=== PATIENT | female | born 1990 | race Caucasian/White ===

== ENCOUNTER 2019-10-05 13:10 | Emergency (ER) | payer OTHER, MEDICAID, SELFPAY ==
[2019-10-05 13:14] VITALS: BP 150/101; PULSE 90; RESP 16; TEMP 36.6; O2SAT 100; BMI 29.2
--- NOTE | 2019-10-05 13:40 | DI.RAD.S_ITS ---
PROCEDURE: XR CHEST 2V INDICATIONS: Chest pain TECHNIQUE: 2 views of the chest were acquired. COMPARISON: None. FINDINGS: Surgical changes and devices: None. Lungs and pleura: Lungs are clear. No pleural effusions or pneumothorax. Mediastinum: Mediastinal contours are normal. Heart size is normal. Bones and chest wall: No suspicious bony abnormalities. Soft tissues appear unremarkable. IMPRESSION: Normal chest plain films. Dictated by: Stuart Baker M.D. on 10/05/2019 at 14:28 Approved by: Stuart Baker M.D. on 10/05/2019 at 14:28
== END 2019-10-05 15:40 | disposition left against medical advice (07) ==
PROVIDERS: Emergency Provider Emergency Medicine; PCP Physician Assistant Medical
DX: R07.9 Chest pain, unspecified (principal)
CPT/HCPCS: 71046; 93005; 99281

== ENCOUNTER 2021-10-05 16:02 | Emergency (ER) | payer OTHER, MEDICAID, SELFPAY ==
[2021-10-05 16:07] VITALS: BP 117/81; PULSE 88; RESP 18; TEMP 37; BMI 28.0
[2021-10-05] MEDS: ONDANSETRON 4 MG ODT SL (16:37)
--- NOTE | 2021-10-05 19:11 | ED_ITS ---
HPI - Nausea/Vomiting/Diarrhea General Chief complaint: Nausea/Vomiting/Diarrhea Stated complaint: COVID+/Throwing Up Time Seen by Provider: 10/05/21 19:04 Source: patient Mode of arrival: Ambulatory History of Present Illness HPI Narrative: Patient is a 31-year-old female who presents with nausea and vomiting. She tested positive for COVID on September 26. She is not vaccinated. She says the symptoms actually started to improve however 2 days ago she started feeling nauseous again and unable to keep anything down. She was seen and evaluated at [facility] earlier today they did get blood work she was noted to have a mild elevation of liver enzymes with AST 94 ALT 70 a and a normal bilirubin of 0.8. Unfortunately patient states that her IV infiltrated is and she received about 500 cc subcutaneously (no mention of this in chart). She was discharged shortly after that. She was given a prescription for Zofran. She came here for 2nd evaluation. At this time his that she has not vomited since this morning she has been tolerating small sips. She overall appears well. Related Data Home Medications Medication Instructions Recorded Confirmed epinephrine 0.3 mg/0.3 mL 0.3 mg IM PRN PRN 10/05/19 injection, auto-injector Previous Rx's Medication Instructions Recorded ondansetron 4 mg disintegrating 4 mg PO Q8H PRN #10 tab 10/05/21 tablet Allergies Allergy/AdvReac Type Severity Reaction Status Date / Time ciprofloxacin [From CIPRO] Allergy Intermediate Unverified 10/05/19 13:17 Sulfa (Sulfonamide Allergy Intermediate Unverified 10/05/19 13:17 Antibiotics) [SULFA (SULFONAMIDE ANTIBIOTICS)] sulfamethoxazole Allergy Intermediate Difficulty Verified 10/05/21 16:07 [From Bactrim] Breathing trimethoprim [From Bactrim] Allergy Intermediate Difficulty Verified 10/05/21 16:07 Breathing escitalopram [From Lexapro] Allergy Mild Rash Verified 10/05/21 16:07 SULFA Allergy Mild Uncoded 10/05/19 13:17 Review of Systems Review of Systems Narrative: GENERAL: Denies chills, fatigue, malaise, fever, sweats, travel HEENT: Denies sinus pain, ear pain, sore throat, difficulty swallowing, neck pain RESPIRATORY: Denies dyspnea, cough, wheezing, hemoptysis, sputum. CARDIOVASCULAR: Denies chest pain, palpitations, orthopnea, edema GASTROINTESTINAL: See HPI : Denies dysuria, frequency, incontinence, hematuria, urinary retention, flank pain. MUSCULOSKELETAL: Denies weakness, joint pain, or bony pain SKIN: No rash, no erythema, no pruritus NEUROLOGIC: Denies weakness, dizziness, headache, numbness, change in speech, confusion PSYCHIATRIC: No concerning psychosocial issues. 12 point review of systems is negative except for those stated above and HPI Patient History Social History Smoking Status: Never smoker Smoking Status: Never smoker Substance Use Type: does not use Exam Initial Vital Signs Initial Vital Signs: Vital Signs Temperature 98.6 F 10/05/21 16:07 Pulse Rate 88 10/05/21 16:07 Respiratory Rate 18 10/05/21 16:07 Blood Pressure 117/81 10/05/21 16:07 GENERAL: Alert 31-year-old female overall appears well in no acute distress. HEENT: Head atraumatic,EOMI, pupils reactive, face symmetric, moist mucous membranes CARDIOVASCULAR: Regular rate and rhythm without murmurs, rubs or gallops. RESPIRATORY: Breath sounds equal bilaterally, no wheezes rales or rhonchi. ABDOMEN: Soft, minimal right upper quadrant pain minimal epigastric pain no guarding no rebound no distension normal bowel sounds EXTREMITIES: Normal range of motion, no clubbing or edema. Neurovascularly intact NEUROLOGICAL: Alert and oriented x4.Normal gait and speech. SKIN: Warm, dry, no laceration, no petechiae, no rashes or lesions. Course Orders Ordered: ED Orders 10/05/21 19:16 US abdomen limited Stat Discontinued Medications Ondansetron HCl (Ondansetron 4 Mg Odt) 4 mg SL NOW ONE Stop: 10/05/21 16:15 Last Admin: 10/05/21 16:37 Dose: 4 mg Documented by: ARMANDO Ondansetron HCl (Ondansetron 4 Mg Odt Prepack) 1 bottle MISC SEEINSTR ONE Stop: 10/05/21 21:39 Last Admin: 10/05/21 21:42 Dose: 1 bottle Documented by: DAPHNE Vital Signs Vital signs: Vital Signs - 8 hr 10/05/21 16:07 10/05/21 19:25 10/05/21 21:46 Temperature 98.6 F 98.1 F Pulse Rate 88 89 85 Respiratory Rate 18 16 16 Blood Pressure 117/81 154/97 H 113/81 Pulse Oximetry 100 99 [facility] - Nausea/Vomiting/Diarrhea Imaging Data US - abdomen: Radiologist's Impression: PROCEDURE:? US ABDOMEN LIMITED ? INDICATIONS:? PAIN AND MILDLY ELEVATED LIVER FUNCTION TESTS ? TECHNIQUE:? Real-time scanning was performed of the abdominal and retroperitoneal organs, with image documentation.? ? COMPARISON:? [facility], CT, KIDNEY/ URETER/BLADDER, 06/06/2017, 20:37. ? FINDINGS:? ? Liver:? Liver is normal in size and homogeneous in echotexture.? ? Gallbladder:? Prominent sludge is present within the gallbladder.? Wall thickness is within normal limits measuring 2.4 cm.? ? Biliary ducts:? Intrahepatic bile ducts are non-dilated.? Extrahepatic bile duct caliber measures 2.8 mm.? Normal is 6-7 mm or less in diameter, or 10 mm or less post-cholecystectomy.? ? IMPRESSION:? Gallbladder sludge without wall thickening. ? Dictated by: Aranza Swain M.D. on 10/05/2021 at 21:13 ? ? [facility] Narrative Medical decision making narrative: Patient had blood work an IV fluid done earlier today in fact she was released around 230 in the afternoon. At this time there is no need to repeat her blood work she overall appears well. She is tolerating fluid here in the ED she has not vomited in a while. Ultrasound does show she have good has gallbladder sludge but no stones. She is afebrile at this time no need for further workup. Discussed warning signs with her and when to return to the ED. May eventually need to have gallbladder removed but not at this time. Discharge Plan Departure Patient Disposition: Home Clinical Impression: Gallbladder sludge Instructions: Gallstones Activity Restrictions/Additional Instructions: *You have been diagnosed with gallbladder sludge *What to do: At this time her gallbladder is inflamed but no sign of infection or gallstones. Please monitor closely. It may be due to recent infection. Continue to increase fluid as tolerated. Avoid fatty foods and can exacerbate pain and nausea *Continue to take medications as directed Zofran 4 mg every 8 hours if needed for nausea or vomiting--> SENT TO [facility] *Follow up with your primary care provider in 2-3 days or call [phone] *Return to ER if you should have fever, increasing right upper abdominal pain, persistent vomiting or any new, worsening or concerning symptoms Prescriptions: New ondansetron 4 mg tablet,disintegrating 4 mg PO Q8H PRN (Reason: nausea and vomiting) Qty: 10 0RF No Action epinephrine 0.3 mg/0.3 mL auto-injector 0.3 mg IM PRN PRN (Reason: Allergic Reaction) 0RF Referrals: Lexii Nunez PA-C [Primary Care Provider] -
--- NOTE | 2021-10-05 19:16 | DI.US.S_ITS ---
PROCEDURE: US ABDOMEN LIMITED INDICATIONS: PAIN AND MILDLY ELEVATED LIVER FUNCTION TESTS TECHNIQUE: Real-time scanning was performed of the abdominal and retroperitoneal organs, with image documentation. COMPARISON: [facility], CT, KIDNEY/ URETER/BLADDER, 06/06/2017, 20:37. FINDINGS: Liver: Liver is normal in size and homogeneous in echotexture. Gallbladder: Prominent sludge is present within the gallbladder. Wall thickness is within normal limits measuring 2.4 cm. Biliary ducts: Intrahepatic bile ducts are non-dilated. Extrahepatic bile duct caliber measures 2.8 mm. Normal is 6-7 mm or less in diameter, or 10 mm or less post-cholecystectomy. IMPRESSION: Gallbladder sludge without wall thickening. Dictated by: Aranza Swain M.D. on 10/05/2021 at 21:13 Approved by: Aranza Swain M.D. on 10/05/2021 at 21:14
[2021-10-05 19:25] VITALS: BP 154/97; PULSE 89; RESP 16; TEMP 36.7; O2SAT 100
--- NOTE | 2021-10-05 19:30 | PC.NURSE ---
Pt described IV infiltration earlier at [facility], right upper arm noted to have some swelling, pt reports improvement since occurrence. Assisted pt to elevate arm on pillow.
--- NOTE | 2021-10-05 21:19 | PC.NURSE ---
Pt reports keeping water down, nausea returning, coached pt on small sips and time in between.
[2021-10-05] MEDS: ONDANSETRON 4 MG ODT PREPACK 1 BOTTLE MISC (21:42)
[2021-10-05 21:46] VITALS: BP 113/81; PULSE 85; RESP 16; O2SAT 99
== END 2021-10-05 21:47 | disposition home or self-care (01) ==
PROVIDERS: Emergency Provider Emergency Medicine; PCP Physician Assistant Medical
DX: K82.8 Other specified diseases of gallbladder (principal); R11.2 Nausea with vomiting, unspecified
CPT/HCPCS: 76705; 99283

== ENCOUNTER 2021-10-15 17:31 | Observation (INO) | payer OTHER, MEDICAID, SELFPAY ==
[2021-10-15] VITALS (7 sets, daily range): BP systolic 113–154; BP diastolic 66–100; PULSE 75–97; RESP 18; TEMP 36.7; O2SAT 83–100; BMI 28.0
[2021-10-15 18:07] LABS: Add Manual Diff / Slide Review NO; Basophils Absolute Auto 100 /uL (0-100); Eosinophils Absolute Auto 100 /uL (0-450); Eosinophils Percent Auto 1.6 % (2-4); Hematocrit 40.1 % (36-46); Hemoglobin 13.7 g/dL (12.0-16.0); Lymphocytes Absolute Auto 1400 /uL (1100-4500); Lymphocytes Percent Auto 20.6 % (25-40); Mean Corpuscular HGB Conc 34.1 % (30-36); Mean Corpuscular Hemoglobin 28.6 PG (26-34); Mean Corpuscular Volume 83.9 fL (80-100); Monocytes Absolute Auto 400 /uL (0-900); Monocytes Percent Auto 5.6 % (3-14); Neutrophils Absolute Auto 5000 /uL (1500-7000); Neutrophils Percent Auto 71.2 % (50-75); Platelet Count 198 X10^3/uL (150-400); Red Blood Cell Count 4.78 X10^6/uL (4.0-5.2); Red Cell Distribution Width 14.1 % (11.6-14.8)
[2021-10-15 18:29] LABS: Alanine Aminotransferase 566 IU/L (<35); Albumin Globulin Ratio 1.3 (1.0-2.8); Alkaline Phosphatase 140 U/L (38-126); Aspartate Aminotransferase 707 IU/L (14-36); BUN Creatinine Ratio 15.9 (6-22); Bilirubin Total 1.5 mg/dL (0.2-1.3); Blood Urea Nitrogen 17 mg/dL (7-17); Calcium 9.7 mg/dL (8.4-10.2); Carbon Dioxide 28 mmol/L (22-32); Chloride 101 mmol/L (98-107); Estimated Glomerular Filt Rate > 60.0 mL/min (>60); Globulin 3.8 g/dL (1.7-4.1); Glucose 90 mg/dL (70-100); HEMOLYSIS < 15 (0-50); Lipase 177 U/L (23-300); Sodium 138 mmol/L (137-145); Total Protein 8.8 g/dL (6.3-8.2)
--- NOTE | 2021-10-15 22:12 | DI.US.S_ITS ---
PROCEDURE: US ABDOMEN LIMITED INDICATIONS: ABD PAIN ELEVATED LFTS TECHNIQUE: Real-time scanning was performed of the abdominal and retroperitoneal organs, with image documentation. COMPARISON: [facility], , US ABDOMEN LIMITED, 10/05/2021, 20:04. FINDINGS: Liver: Liver is normal in size and homogeneous in echotexture. Gallbladder: There is gallbladder sludge or gravel stones. No gallbladder wall thickening, pericholecystic fluid or sonographic Joyce's sign. Biliary ducts: Intrahepatic bile ducts are non-dilated. Extrahepatic bile duct caliber measures 2.8 mm. Pancreas: Obscured by overlying bowel gas. Miscellaneous: No free abdominal fluid. IMPRESSION: Gallbladder sludge or gravel stones. No ultrasound findings to suggest acute cholecystitis. No biliary dilation. Dictated by: Kimani Major M.D. on 10/15/2021 at 23:42 Approved by: Kimani Major M.D. on 10/15/2021 at 23:45
[2021-10-15] MEDS: SODIUM CHLORIDE 0.9% 1,000 ML 1000 ML IV (22:16)
[2021-10-15 22:39] LABS: COVID19 -Nasal RAPID Negative (Negative)
[2021-10-16] VITALS (13 sets, daily range): BP systolic 105–134; BP diastolic 63–84; PULSE 63–95; RESP 18–20; TEMP 36.1–37.2; O2SAT 98–100; BMI 26.2
--- NOTE | 2021-10-16 00:07 | ED_ITS ---
HPI - Abdominal Pain General Chief Complaint: Abdominal Pain Stated Complaint: THOWING UP RIGHT SIDE PAIN Time Seen by Provider: 10/15/21 22:12 Source: patient Mode of arrival: Ambulatory Limitations: no limitations History of Present Illness HPI narrative: This is a 31-year-old female who comes to the emergency department for complaint of right upper quadrant pain that has been persistent since she was last seen about a week ago. She has had nausea and vomiting. She denies any fevers but has had some chills. Patient states she has had constipation but that is chronic for her. She denies any urinary symptoms. She states she has history of inappropriate tachycardia she takes metoprolol follows with cardiology. Denies other medical issues. She has several antibiotic allergies. No tobacco, denies illicit, or alcohol. Related Data Home Medications Medication Instructions Recorded Confirmed epinephrine 0.3 mg/0.3 mL 0.3 mg IM PRN PRN 10/05/19 10/16/21 injection, auto-injector loratadine 10 mg tablet (Claritin) 10 mg PO DAILY 10/16/21 10/16/21 metoprolol succinate 25 mg 25 mg PO DAILY 10/16/21 10/16/21 tablet,extended release 24 hr Previous Rx's Medication Instructions Recorded ondansetron 4 mg disintegrating 4 mg PO Q8H PRN #10 tab 10/05/21 tablet Allergies Allergy/AdvReac Type Severity Reaction Status Date / Time ciprofloxacin [From CIPRO] Allergy Intermediate Unverified 10/05/19 13:17 Sulfa (Sulfonamide Allergy Intermediate Unverified 10/05/19 13:17 Antibiotics) [SULFA (SULFONAMIDE ANTIBIOTICS)] sulfamethoxazole Allergy Intermediate Difficulty Verified 10/05/21 16:07 [From Bactrim] Breathing trimethoprim [From Bactrim] Allergy Intermediate Difficulty Verified 10/05/21 16:07 Breathing escitalopram [From Lexapro] Allergy Mild Rash Verified 10/05/21 16:07 SULFA Allergy Mild Uncoded 10/05/19 13:17 Review of Systems Review of Systems ROS Unobtainable: All systems reviewed & are unremarkable except as noted in HPI and below Patient History Medical History Closed head injury Concussion syndrome Dizziness Gallbladder sludge Lower back pain Urinary tract infection Social History household members: family Smoking Status: Never smoker alcohol intake: never Smoking Status: Never smoker Substance Use Type: does not use Exam Narrative Exam Narrative: GENERAL: Alert and oriented x three, female in mild distress. HEENT: Head normocephalic, atraumatic, EOMI, pupils reactive, face symmetric, moist mucous membranes NECK: Supple, full range of motion CARDIOVASCULAR: Regular rate and rhythm without murmurs, rubs or gallops. RESPIRATORY: Breath sounds equal bilaterally, no wheezes rales or rhonchi. ABDOMEN: Soft, mild to moderate right upper quadrant tenderness. Nondistended. Normoactive bowel sounds all 4 quadrants. No guarding or rebound, rigidity, no mass : No CVA tenderness EXTREMITIES: Normal range of motion, no clubbing or edema. Neurovascularly intact NEUROLOGICAL: Cranial nerves II through XII grossly intact. Moving all extremities SKIN: Warm, dry, no petechiae, no rashes or lesions. Initial Vital Signs Initial Vital Signs: Vital Signs Temperature 98.1 F 10/15/21 17:41 Pulse Rate 97 H 10/15/21 17:41 Respiratory Rate 18 10/15/21 17:41 Blood Pressure 154/90 H 10/15/21 17:41 Pulse Oximetry 99 10/15/21 17:41 Course Orders Ordered: ED Orders 10/15/21 22:12 US abdomen limited Stat 10/15/21 22:17 COVID19 -Nasal swab/Pre-Proc Stat 10/16/21 00:11 Test Serum,Qual Stat 10/16/21 00:23 Urine Microscopic Stat 10/16/21 00:39 Consult to General Surgery Stat 10/16/21 00:45 Hepatitis Acute Panel Stat Hydrocodone Bitart/Acetaminophen (Hydrocodone/Acet 5/325 Tablet) 1 tab PO Q4HR PRN PRN Reason: Pain, Moderate (4-6) Hydrocodone Bitart/Acetaminophen (Hydrocodone/Acet 5/325 Tablet) 2 tab PO Q4HR PRN PRN Reason: Pain, Severe (7-10) Enoxaparin Sodium (Enoxaparin 40 Mg/0.4 Ml Syringe) 40 mg SUBCUT DAILY SUGAR Sodium Chloride (Normal Saline 0.9%) 1,000 mls @ 100 mls/hr IV CONT SUGAR Last Admin: 10/16/21 03:04 Dose: 100 mls/hr Documented by: SAM Metoprolol Succinate (Metoprolol Er 25 Mg Tablet) 25 mg PO DAILY [facility] Naloxone HCl (Naloxone 0.4 Mg/Ml Vial) 0.2 mg IV Q2MIN PRN PRN Reason: Opiate Reversal Ondansetron HCl (Ondansetron 4 Mg/2 Ml Inj) 4 mg IV Q6HR PRN PRN Reason: Nausea And Vomiting Oxycodone HCl (Oxycodone Ir 5 Mg Tablet) 5 mg PO Q4HR PRN PRN Reason: Pain, Moderate (4-6) Discontinued Medications Acetaminophen (Acetaminophen 325 Mg Tablet) 650 mg PO Q6HR PRN PRN Reason: Fever/Mild Pain (1-3) Sodium Chloride (Normal Saline 0.9%) 1,000 mls @ 1,000 mls/hr IV BOLUS ONE Stop: 10/15/21 23:11 Last Infusion: 10/16/21 00:09 Dose: 0 mls/hr Documented by: Admin: 10/15/21 22:16 Dose: 1,000 mls/hr Documented by: PEPPER Lactated Ringer's (Lactated Ringers) 1,000 mls @ 100 mls/hr IV CONT SUGAR Last Admin: 10/16/21 02:42 Dose: 100 mls/hr Documented by: SAM Ketorolac Tromethamine (Ketorolac 30 Mg/Ml Vial) 30 mg IV NOW ONE Stop: 10/16/21 00:22 Last Admin: 10/16/21 00:51 Dose: 30 mg Documented by: PEPPER Ondansetron HCl (Ondansetron 4 Mg/2 Ml Inj) 4 mg IV NOW ONE Stop: 10/16/21 00:22 Last Admin: 10/16/21 00:51 Dose: 4 mg Documented by: PEPPER Consultations Consultation #1: Dr. Bassett, recommends HIDA scan. Discusses obtaining a viral hepatitis panel. She asked for admission to medicine as she has suspect this is likely nonsurgical. Consultation #2: MANDY Vidal, hospitalist. Patient has hepatitis, she has had nausea and vomiting and right upper quadrant tenderness. She has persistent gallbladder sludge but no other acute changes on her ultrasound. An but has trending upwards LFTs compared to priors documented in last visit from Dr. Moreno. Discussed General surgery's recommendations including HIDA scan, viral hepatitis panel. Patient does have a history of inappropriate tachycardia which she takes metoprolol daily but denies other medical issues. Vital Signs Vital signs: Vital Signs - 8 hr 10/15/21 23:00 10/15/21 23:30 10/16/21 00:00 Pulse Rate 91 H 85 85 Blood Pressure 126/66 113/66 113/63 Pulse Oximetry 98 100 100 10/16/21 00:30 Pulse Rate 95 H Blood Pressure Pulse Oximetry 99 MDM - Abdominal Pain Lab Data Result diagrams: 10/16/21 06:04 10/15/21 17:50 Labs: Lab Results 10/15/21 10/15/21 10/15/21 Range/Units 17:50 17:50 17:50 WBC 7.0 (4.5-11.0) X10^3/uL RBC 4.78 (4.0-5.2) X10^6/uL Hgb 13.7 (12.0-16.0) g/dL Hct 40.1 (36-46) % MCV 83.9 (80-100) fL MCH 28.6 (26-34) PG MCHC 34.1 (30-36) % RDW 14.1 (11.6-14.8) % Plt Count 198 (150-400) X10^3/uL Neut % (Auto) 71.2 (50-75) % Lymph % (Auto) 20.6 L (25-40) % [place] % (Auto) 5.6 (3-14) % Eos % (Auto) 1.6 L (2-4) % Baso % (Auto) 1.0 (0-2) % Neut # (Auto) 5000 (9556-6705) /uL Lymph # (Auto) 1400 (4331-8726) /uL [place] # (Auto) 400 (0-900) /uL Eos # (Auto) 100 (0-450) /uL Baso # (Auto) 100 (0-100) /uL Sodium 138 (137-145) mmol/L Potassium 4.0 (3.4-5.1) mmol/L Chloride 101 (98-107) mmol/L Carbon Dioxide 28 (22-32) mmol/L BUN 17 (7-17) mg/dL Creatinine 1.07 H (0.52-1.04) mg/dL Estimated GFR > 60.0 (>60) mL/min BUN/Creatinine Ratio 15.9 (6-22) Glucose 90 (70-100) mg/dL Calcium 9.7 (8.4-10.2) mg/dL Total Bilirubin 1.5 H (0.2-1.3) mg/dL AST 707 H (14-36) IU/L ALT 566 H (<35) IU/L Alkaline Phosphatase 140 H (38-126) U/L Total Protein 8.8 H (6.3-8.2) g/dL Albumin 5.0 (3.5-5.0) g/dL Globulin 3.8 (1.7-4.1) g/dL Albumin/Globulin Ratio 1.3 (1.0-2.8) Lipase 177 (23-300) U/L Serum , Qual Negative (Negative) Urine RBC (0-5/HPF) Urine WBC (0-5/HPF) Ur Squamous Epith Cells (0-5/HPF) Urine Bacteria (None) Ur Culture Indicated? SARS-CoV-2 (PCR) (Negative) 10/15/21 10/16/21 Range/Units 22:17 00:23 WBC (4.5-11.0) X10^3/uL RBC (4.0-5.2) X10^6/uL Hgb (12.0-16.0) g/dL Hct (36-46) % MCV (80-100) fL MCH (26-34) PG MCHC (30-36) % RDW (11.6-14.8) % Plt Count (150-400) X10^3/uL Neut % (Auto) (50-75) % Lymph % (Auto) (25-40) % [place] % (Auto) (3-14) % Eos % (Auto) (2-4) % Baso % (Auto) (0-2) % Neut # (Auto) (7305-1070) /uL Lymph # (Auto) (3916-9120) /uL [place] # (Auto) (0-900) /uL Eos # (Auto) (0-450) /uL Baso # (Auto) (0-100) /uL Sodium (137-145) mmol/L Potassium (3.4-5.1) mmol/L Chloride (98-107) mmol/L Carbon Dioxide (22-32) mmol/L BUN (7-17) mg/dL Creatinine (0.52-1.04) mg/dL Estimated GFR (>60) mL/min BUN/Creatinine Ratio (6-22) Glucose (70-100) mg/dL Calcium (8.4-10.2) mg/dL Total Bilirubin (0.2-1.3) mg/dL AST (14-36) IU/L ALT (<35) IU/L Alkaline Phosphatase (38-126) U/L Total Protein (6.3-8.2) g/dL Albumin (3.5-5.0) g/dL Globulin (1.7-4.1) g/dL Albumin/Globulin Ratio (1.0-2.8) Lipase (23-300) U/L Serum , Qual (Negative) Urine RBC None seen (0-5/HPF) Urine WBC None seen (0-5/HPF) Ur Squamous Epith Cells 1-5 /hpf (0-5/HPF) Urine Bacteria Few (2-10) H (None) Ur Culture Indicated? Cult not indicated SARS-CoV-2 (PCR) Negative (Negative) Point of care testing: Point of Care Testing Test Results Negative Urine Dip Bedside Urine Glucose Negative Bedside Urine Bilirubin - Negative Bedside Urine Ketone +++ 80 Urine Specific [place] 1.030 Bedside Urine Occult Blood - Negative Bedside Urine pH 6.0 Bedside Urine Protein +/- 15 Bedside Urine Urobilinogen - Negative Bedside Urine Nitrite - Negative Bedside Urine Leukocytes - Negative Esterase Imaging Data US - abdomen: Radiologist's Impression: [address] [address] Ultrasound Report Signed Patient: Mariia Childress MR#: [id number] : 1990 Acct:[id number] Age/Sex: 31 / F Date of Service: 10/15/21 Loc: ED Accession Number: [id number] ?? Procedure: US abdomen limited Ordering Provider: Kyung Campos D.O. PROCEDURE:? US ABDOMEN LIMITED ? INDICATIONS:? ABD PAIN ELEVATED LFTS ? TECHNIQUE:? Real-time scanning was performed of the abdominal and retroperitoneal organs, with image documentation.? ? COMPARISON:? [facility], [place], US ABDOMEN LIMITED, 10/05/2021, 20:04. ? FINDINGS:? ? Liver:? Liver is normal in size and homogeneous in echotexture.? ? Gallbladder:? There is gallbladder sludge or gravel stones. No gallbladder wall thickening, pericholecystic fluid or sonographic Joyce's sign. Biliary ducts:? Intrahepatic bile ducts are non-dilated.? Extrahepatic bile duct caliber measures 2.8 mm. Pancreas:? Obscured by overlying bowel gas.? Miscellaneous:? No free abdominal fluid.? ? IMPRESSION:? Gallbladder sludge or gravel stones.? No ultrasound findings to suggest acute cholecystitis.? No biliary dilation. ? ? Dictated by: Kimani Major M.D. on 10/15/2021 at 23:42 ? ? Approved by: Kimani Major M.D. on 10/15/2021 at 23:45?? [facility] Narrative Medical decision making narrative: This is a 31-year-old female with increasing LFTs with nausea and vomiting and right upper quadrant pain he has biliary sludge but no wall thickening or pericholecystic fluid. She is tender on exam but has negative sonographic Joyce sign. She has been afebrile. She has had nausea and vomiting and has ketones in her urine. Case was discussed with General surgery who recommends HIDA scan, viral hepatitis panel and admission to Medicine. Discussed with nurse practitioner Young who accepts. Plan for consultation with General surger hernandez. Discharge Plan Departure Patient Disposition: Admitted As Inpatient Clinical Impression: Hepatitis Admit Date/Time: 10/16/21 00:42 Admit Provider: Tabitha Vidal
[2021-10-16 00:25] LABS: Pregnancy Test Serum,Qual Negative (Negative)
[2021-10-16 00:44] LABS: Bacteria Urine Few (2-10); Culture Indicated Urine Cult Not Indicated; RBC Urine None Seen (0-5/HPF); Squamous Epithelial Cell Urine 1-5 /HPF (0-5/HPF); WBC Urine None Seen (0-5/HPF)
[2021-10-16] MEDS: ONDANSETRON 4 MG/2 ML INJ IV ×2 (00:51→14:08)
[2021-10-16] MEDS: KETOROLAC 30 MG/ML VIAL IV (00:51)
--- NOTE | 2021-10-16 02:41 | DI.NM.S_ITS ---
PROCEDURE: NM HIDA WITH CCK PHARMACEUTICAL: 5.4 mCi Tc-99m mebrofenin IV; 1.2 mcg CCK IV. INDICATIONS: Gall stones, sludge TECHNIQUE: Following intravenous administration of Tc-99m mebrofenin, sequential anterior abdominal images were obtained. To evaluate the contractile response of the gallbladder in response to Cholecystokinin (CCK), sincalide (0.02 ?g/kg) was administered by slow intravenous infusion approximately 60 minutes after the administration of the radiopharmaceutical. Sequential imaging was continued for 30 minutes after the start of CCK infusion. Gallbladder ejection fraction was calculated. COMPARISON: None. FINDINGS: Biliary scan: There is normal tracer uptake and excretion by the liver. There is normal visualization of the intrahepatic ducts, common bile duct, and gallbladder. There is normal tracer transit into the duodenum. CCK stimulation: There is diminished contractile response of the gallbladder to CCK infusion. The calculated gallbladder ejection fraction is 20% ; normal values are above 35%. It has been shown that any patient abdominal pain after CCK administration is related to the rate of CCK injection, rather than to any underlying gallbladder disease (Clinical Nuclear Medicine 2012; 37: 63-70. Journal of Nuclear Medicine 2014; 55: 1-9). IMPRESSION: 1. Findings suggestive of chronic cholecystitis. Dictated by: Jeffrey Nunez M.D. on 10/16/2021 at 13:10 Approved by: Jeffrey Nunez M.D. on 10/16/2021 at 13:10
[2021-10-16] MEDS: LACTATED RINGERS 1,000 ML 100 ML IV (02:42)
--- NOTE | 2021-10-16 03:02 | P.HP_ITS ---
History of Present Illness History of Present Illness Date Patient Seen: 10/16/21 Time Patient Seen: 02:45 Chief complaint: THOWING UP RIGHT SIDE PAIN Narrative: Mariia Childress is a 31-year-old female who presented to the emergency department with right upper quadrant pain, nausea and vomiting. She noticed initially that the pain started under the ribs. She has not been eating for the past 4-5 days therefore not urinating much and has chronic constipation. She has been able to keep down water and Gatorade. She states that she had chills but no fever. She currently takes metoprolol, though I am not sure aside from an elevated heart rate as to why she is taking it. In the emergency department ordered an ultrasound of her abdomen and found gallstones and gallbladder sludge with no signs of acute cholecystitis. ED consulted with General surgery and they requested that we admit the patient and order a HIDA scan for her in the morning. Her vital signs are stable and normal, CBC is unremarkable, she does have a mildly elevated creatinine of 1.07 which might be caused from dehydration, her T bili is elevated at 1.5 AST 707 ALT 566 alk-phos 140 with protein of 8.8. She had a mild amount of urine bacteria and a culture was not indicated. COVID-19 PCR is negative, acute hepatitis panel is pending. Patient History Medical History Closed head injury Concussion syndrome Dizziness Gallbladder sludge Lower back pain Urinary tract infection Family & Social History Social History: household members family Prior Living Arrangements House Safety & Behavioral: Feels Safe in Current Yes Environment Been Physically Hurt or No Threatened By a Person Suicidal Ideation Description None Suicide Plan Description No Plan Tobacco & Substance use: Smoking Status Never smoker alcohol intake never Substance Use Type does not use Meds Home Medications and Allergies Home Medications Medication Instructions Recorded Confirmed Type epinephrine 0.3 mg/0.3 mL 0.3 mg IM PRN PRN 10/05/19 10/16/21 History injection, auto-injector ondansetron 4 mg disintegrating 4 mg PO Q8H PRN #10 tab 10/05/21 10/16/21 Rx tablet loratadine 10 mg tablet (Claritin) 10 mg PO DAILY 10/16/21 10/16/21 History metoprolol succinate 25 mg 25 mg PO DAILY 10/16/21 10/16/21 History tablet,extended release 24 hr Allergies Allergy/AdvReac Type Severity Reaction Status Date / Time ciprofloxacin [From CIPRO] Allergy Intermediate Unverified 10/05/19 13:17 Sulfa (Sulfonamide Allergy Intermediate Unverified 10/05/19 13:17 Antibiotics) [SULFA (SULFONAMIDE ANTIBIOTICS)] sulfamethoxazole Allergy Intermediate Difficulty Verified 10/05/21 16:07 [From Bactrim] Breathing trimethoprim [From Bactrim] Allergy Intermediate Difficulty Verified 10/05/21 16:07 Breathing escitalopram [From Lexapro] Allergy Mild Rash Verified 10/05/21 16:07 SULFA Allergy Mild Uncoded 10/05/19 13:17 Review of Systems Review of Systems ROS: Yes All systems reviewed with the patient and are negative except as otherwise documented Exam Vital Signs (past 8 hours): - 10/15/21 21:29 10/15/21 21:30 10/15/21 22:00 Temperature Pulse Rate 75 80 82 Respiratory Rate Blood Pressure 141/100 H 118/75 Pulse Oximetry 83 L 99 98 10/15/21 22:30 10/15/21 23:00 10/15/21 23:30 Temperature Pulse Rate 82 91 H 85 Respiratory Rate Blood Pressure 120/69 126/66 113/66 Pulse Oximetry 100 98 100 10/16/21 00:00 10/16/21 00:30 10/16/21 01:00 Temperature Pulse Rate 85 95 H 87 Respiratory Rate Blood Pressure 113/63 Pulse Oximetry 100 99 99 10/16/21 01:10 Temperature 98.0 F Pulse Rate 88 Respiratory Rate 20 Blood Pressure 134/84 Pulse Oximetry 99 Oxygen Delivery Method Room Air Narrative Exam Narrative: Gen: Alert, oriented, well-developed 31 y.o. female, NAD HEENT: normocephalic, atraumatic, conjunctiva clear, sclera non-icteric, oral mucosa pink and moist Neck: supple, full ROM, no JVD, trachea is midline Resp: Lungs CTA, non-labored breathing CV: RRR, no murmur or rubs Abd: soft, diffuse epigastric tenderness, normoactive BTs Skin: no lesions or rashes, dry and intact Neuro: Alert and oriented X 4 w/no focal deficits. Speech clear and coherent. Extremities: moves all 4 extremities, is ambulatory, negative Jeremi?s sign Psyche: normal mood and affect. Objective Labs Result Diagrams: 10/15/21 17:50 10/15/21 17:50 Labs: Laboratory Results - last 24 hr 10/15/21 10/15/21 10/15/21 17:50 17:50 17:50 WBC 7.0 RBC 4.78 Hgb 13.7 Hct 40.1 MCV 83.9 MCH 28.6 MCHC 34.1 RDW 14.1 Plt Count 198 Neut % (Auto) 71.2 Lymph % (Auto) 20.6 L [place] % (Auto) 5.6 Eos % (Auto) 1.6 L Baso % (Auto) 1.0 Neut # (Auto) 5000 Lymph # (Auto) 1400 [place] # (Auto) 400 Eos # (Auto) 100 Baso # (Auto) 100 Sodium 138 Potassium 4.0 Chloride 101 Carbon Dioxide 28 BUN 17 Creatinine 1.07 H Estimated GFR > 60.0 BUN/Creatinine Ratio 15.9 Glucose 90 Calcium 9.7 Total Bilirubin 1.5 H AST 707 H ALT 566 H Alkaline Phosphatase 140 H Total Protein 8.8 H Albumin 5.0 Globulin 3.8 Albumin/Globulin Ratio 1.3 Lipase 177 Serum , Qual Negative Urine RBC Urine WBC Ur Squamous Epith Cells Urine Bacteria Ur Culture Indicated? SARS-CoV-2 (PCR) 10/15/21 10/16/21 22:17 00:23 WBC RBC Hgb Hct MCV MCH MCHC RDW Plt Count Neut % (Auto) Lymph % (Auto) [place] % (Auto) Eos % (Auto) Baso % (Auto) Neut # (Auto) Lymph # (Auto) [place] # (Auto) Eos # (Auto) Baso # (Auto) Sodium Potassium Chloride Carbon Dioxide BUN Creatinine Estimated GFR BUN/Creatinine Ratio Glucose Calcium Total Bilirubin AST ALT Alkaline Phosphatase Total Protein Albumin Globulin Albumin/Globulin Ratio Lipase Serum , Qual Urine RBC None seen Urine WBC None seen Ur Squamous Epith Cells 1-5 /hpf Urine Bacteria Few (2-10) H Ur Culture Indicated? Cult not indicated SARS-CoV-2 (PCR) Negative Assessment & Plan Assessment & Plan narrative: Mariia Childress is placed into observation for further evaluation and management of abdominal pain suspected of originating in her gall bladder. 1. Abdominal pain, acute, present on admission * Patient is continued on a clear diet * HIDA scan is scheduled for the morning * Oxycodone 5 mg q.4 hours as needed for pain * Hold acetaminophen 2. Essential hypertension * Continue home dose of metoprolol succinate 25 mg p.o. daily VTE Prophylaxis: Wells risk score 0 Enoxaparin 40 mg subQ once daily Bilateral SCDs Patient is placed into observation as her stay is not expected to exceed 2 midnights. FEN: IV fluids: NS at 100 ml/hour, diet: clears, labs: CBC, C/BMP, liver enzymes, [facility] Dr. Bassett, care and involvement in the patient?s care is appreciated. Dispo: likely home Code status: Full code as discussed with the patient. [X] I have utilized all available immediate resources to obtain, update, or review of the patient's current medications COVID-19 COVID-19 status: Negative Result date/Date tested (Pos, Neg/Pending): 10/16/21 Scores Wells' Criteria for PE Clinical signs and symptoms of DVT: No PE is #1 Dx or equally likely: No Heart rate > 100: No Immobilization at least 3 days or surg in previous 4 weeks: No History of PE or DVT: No Hemoptysis: No Malignancy w/Treatment within 6 months or palliative: No Wells' PE Score total: 0 Quality VTE Deep Vein Thrombosis/Pulmonary Embolism Present on Admission: No MIPS - Admit I confirm the patient?s Advance Care Plan is present, Code status is documented, Surrogate decision maker is in patient?s record [If Yes, STOP here]: Yes MIPS - DC The patient has current or prior documentation of left ventricular ejection fraction (LVEF) less than 40%, or moderate or severely depressed left ventricular systolic function.: No
[2021-10-16] MEDS: SODIUM CHLORIDE 0.9% 1,000 ML 100 ML IV ×2 (03:04→15:51)
[2021-10-16 06:30] LABS: Add Manual Diff / Slide Review NO; Basophils Absolute Auto 100 /uL (0-100); Eosinophils Absolute Auto 200 /uL (0-450); Eosinophils Percent Auto 4.3 % (2-4); Hematocrit 35.8 % (36-46); Hemoglobin 12.1 g/dL (12.0-16.0); Lymphocytes Absolute Auto 2200 /uL (1100-4500); Lymphocytes Percent Auto 41.3 % (25-40); Mean Corpuscular HGB Conc 33.8 % (30-36); Mean Corpuscular Hemoglobin 28.6 PG (26-34); Mean Corpuscular Volume 84.4 fL (80-100); Monocytes Absolute Auto 400 /uL (0-900); Monocytes Percent Auto 8.1 % (3-14); Neutrophils Absolute Auto 2400 /uL (1500-7000); Neutrophils Percent Auto 45.3 % (50-75); Platelet Count 158 X10^3/uL (150-400); Red Blood Cell Count 4.24 X10^6/uL (4.0-5.2); Red Cell Distribution Width 14.3 % (11.6-14.8); White Blood Cell Count 5.3 X10^3/uL (4.5-11.0)
[2021-10-16 06:38] LABS: BUN Creatinine Ratio 18.5 (6-22); Blood Urea Nitrogen 15 mg/dL (7-17); Calcium 8.5 mg/dL (8.4-10.2); Carbon Dioxide 25 mmol/L (22-32); Chloride 107 mmol/L (98-107); Estimated Glomerular Filt Rate > 60.0 mL/min (>60); Glucose 62 mg/dL (70-100); HEMOLYSIS < 15 (0-50); Potassium 3.8 mmol/L (3.4-5.1); Sodium 137 mmol/L (137-145)
[2021-10-16] MEDS: ENOXAPARIN 40 MG/0.4 ML SYRINGE SUBCUT (10:07)
[2021-10-16] MEDS: METOPROLOL ER 25 MG TABLET PO (10:07)
--- NOTE | 2021-10-16 11:08 | PC.NURSE ---
Addendum entered by Abdiel Beard R.N. 10/16/21 18:38: Pt taking Reg diet, continues independent in room. Original Note: Pt alert and oriented offers no overt complaint on waking. Pt aware of Hida scan this morning. Discussed Hida scan with D.I. Plan to inject patient at 10:00 and have Pt down for scan about 11:00 Pt complained of pain. Discussed with Pt that we need to hold pain med as it would affect the Hida scan. Pt stated understanding.
--- NOTE | 2021-10-16 15:36 | PM.CN ---
History of Present Illness Consult details Date Patient Seen: 10/16/21 Time Patient Seen: 13:15 Chief complaint: THOWING UP RIGHT SIDE PAIN Reason for consult: RUQ pain Requesting provider: Naya Moreno Narrative: H/o greater than a week of RUQ pain. Seen at [facility]. Persistent RUQ pain and nausea. Decreased appepite, no cough. No previous episodes. US show no GB wall thickening, no Joyce's sign. possible sludge. LFT's elevated HIDA: no acute cholecystitis, chronic cholecystitis, EF 20% Meds Home Medications and Allergies Home Medications Medication Instructions Recorded Confirmed Type epinephrine 0.3 mg/0.3 mL 0.3 mg IM PRN PRN 10/05/19 10/16/21 History injection, auto-injector ondansetron 4 mg disintegrating 4 mg PO Q8H PRN #10 tab 10/05/21 10/16/21 Rx tablet loratadine 10 mg tablet (Claritin) 10 mg PO DAILY 10/16/21 10/16/21 History metoprolol succinate 25 mg 25 mg PO DAILY 10/16/21 10/16/21 History tablet,extended release 24 hr Allergies Allergy/AdvReac Type Severity Reaction Status Date / Time ciprofloxacin [From CIPRO] Allergy Intermediate Verified 10/16/21 09:52 Sulfa (Sulfonamide Allergy Intermediate Verified 10/16/21 09:52 Antibiotics) [SULFA (SULFONAMIDE ANTIBIOTICS)] sulfamethoxazole Allergy Intermediate Difficulty Verified 10/05/21 16:07 [From Bactrim] Breathing trimethoprim [From Bactrim] Allergy Intermediate Difficulty Verified 10/05/21 16:07 Breathing escitalopram [From Lexapro] Allergy Mild Rash Verified 10/05/21 16:07 Exam Vital Signs (past 8 hours): - 10/16/21 08:41 10/16/21 10:07 10/16/21 14:00 Temperature 97.4 F L 97.5 F L Pulse Rate 81 87 76 Respiratory Rate 18 18 Blood Pressure 105/68 113/75 122/80 Pulse Oximetry 100 100 10/16/21 14:05 Temperature Pulse Rate 63 Respiratory Rate Blood Pressure 117/75 Pulse Oximetry Oxygen Delivery Method Room Air Oxygen Flow Rate 0 Const General: cooperative, healthy appearing and comfortable Orientation: alert and oriented x3 HENMT Head: normocephalic and atraumatic Eyes General: appearance normal, both eyes and all related structures Neck Neck: trachea midline Chest Chest: normal inspection of the chest Resp Effort & Inspection: normal respiratory effort and able to speak in complete sentences Cardio Rate: tachycardic Rhythm: regular rhythm GI Palpation: soft Other: RUQ tenderness to palpation Skin General: no rashes or lesions noted Hair: normal Neuro Cognition: normal cognition Speech: speech normal Psych Appearance: grossly normal and well kempt Objective Labs Result Diagrams: 10/16/21 06:04 10/16/21 06:04 Labs: Laboratory Results - last 24 hr 10/15/21 10/15/21 10/15/21 17:50 17:50 17:50 WBC 7.0 RBC 4.78 Hgb 13.7 Hct 40.1 MCV 83.9 MCH 28.6 MCHC 34.1 RDW 14.1 Plt Count 198 Neut % (Auto) 71.2 Lymph % (Auto) 20.6 L [place] % (Auto) 5.6 Eos % (Auto) 1.6 L Baso % (Auto) 1.0 Neut # (Auto) 5000 Lymph # (Auto) 1400 [place] # (Auto) 400 Eos # (Auto) 100 Baso # (Auto) 100 Sodium 138 Potassium 4.0 Chloride 101 Carbon Dioxide 28 BUN 17 Creatinine 1.07 H Estimated GFR > 60.0 BUN/Creatinine Ratio 15.9 Glucose 90 Calcium 9.7 Total Bilirubin 1.5 H AST 707 H ALT 566 H Alkaline Phosphatase 140 H Total Protein 8.8 H Albumin 5.0 Globulin 3.8 Albumin/Globulin Ratio 1.3 Lipase 177 Serum , Qual Negative Urine RBC Urine WBC Ur Squamous Epith Cells Urine Bacteria Ur Culture Indicated? SARS-CoV-2 (PCR) 10/15/21 10/16/21 10/16/21 22:17 00:23 06:04 WBC 5.3 RBC 4.24 Hgb 12.1 Hct 35.8 L MCV 84.4 MCH 28.6 MCHC 33.8 RDW 14.3 Plt Count 158 Neut % (Auto) 45.3 L D Lymph % (Auto) 41.3 H D [place] % (Auto) 8.1 Eos % (Auto) 4.3 H Baso % (Auto) 1.0 Neut # (Auto) 2400 Lymph # (Auto) 2200 [place] # (Auto) 400 Eos # (Auto) 200 Baso # (Auto) 100 Sodium Potassium Chloride Carbon Dioxide BUN Creatinine Estimated GFR BUN/Creatinine Ratio Glucose Calcium Total Bilirubin AST ALT Alkaline Phosphatase Total Protein Albumin Globulin Albumin/Globulin Ratio Lipase Serum , Qual Urine RBC None seen Urine WBC None seen Ur Squamous Epith Cells 1-5 /hpf Urine Bacteria Few (2-10) H Ur Culture Indicated? Cult not indicated SARS-CoV-2 (PCR) Negative 10/16/21 06:04 WBC RBC Hgb Hct MCV MCH MCHC RDW Plt Count Neut % (Auto) Lymph % (Auto) [place] % (Auto) Eos % (Auto) Baso % (Auto) Neut # (Auto) Lymph # (Auto) [place] # (Auto) Eos # (Auto) Baso # (Auto) Sodium 137 Potassium 3.8 Chloride 107 Carbon Dioxide 25 BUN 15 Creatinine 0.81 Estimated GFR > 60.0 BUN/Creatinine Ratio 18.5 Glucose 62 L Calcium 8.5 Total Bilirubin AST ALT Alkaline Phosphatase Total Protein Albumin Globulin Albumin/Globulin Ratio Lipase Serum , Qual Urine RBC Urine WBC Ur Squamous Epith Cells Urine Bacteria Ur Culture Indicated? SARS-CoV-2 (PCR) [facility] Medical History Closed head injury Concussion syndrome Dizziness Gallbladder sludge Lower back pain Urinary tract infection Social History household members: family Tobacco & Substance Use Smoking Status: Never smoker alcohol intake: never Assessment & Plan Assessment & Plan narrative: RUQ pain with elevated LFT's, not acute cholecystitis. Possible viral hepatitis. No cholecystectomy recommended COVID-19 COVID-19 status: Negative Time Spent With Patient Time with patient: 30 to 49 minutes with 50% spent counseling/coordinating care Critical Care time: I spent a total of [] minutes of critical care time on this patient's care today; this time is exclusive of procedural time.
[2021-10-16] MEDS: HYDROCODONE/ACET 5/325 TABLET 1 TAB PO ×2 (15:52→21:50)
--- NOTE | 2021-10-16 16:02 | CM.DANOTE ---
DISCHARGE ASSESSMENT: Patient is 31yo female who is admitted for continued observation of acute abdominal pain with elevated LFTs, possible viral hepatitis and pending HIDA scan AM of 10/16 as well as essential hypertension; being followed and treated by Dr. Vidal. HIDA scan results indicate no acute cholecystitis, chronic cholecystitis, EF 20% Patient has medical history of closed head injury, concussion syndrome, dizziness, gallbladder sludge, lower back pain, and UTI. Patient has no history of prior admissions, no history of HH, SNF. Patient is fully independent at baseline. Patient resides at home with her parents and siblings; her parents are able to be her transportation home at time of discharge. Patient has Medicaid as well as [employer] as insurance coverage. Patient is anticipated to discharge home. No identified discharge planning needs at this time. No barriers to discharge identified at this time. Kamar NORMAN Discharge Planning/Care Management CM Discharge Assessment Start: 10/16/21 15:58 Freq: Status: Active Protocol: Document 10/16/21 15:59 FREDO (Rec: 10/16/21 16:02 FREDO [id number]) Discharge Planning Assessment Assigned Neon Sign Erector Kamar NORMAN DPOA/Assigned Designee Name n/a Advance Directives? No Advance Directives on File No History Provided By Patient,Medical Record Has Patient been admitted in last 30 No days? Prior Living Arrangements House Household Members family Comment parents and sisters Type of transporation used prior to Drives own vehicle admit Independent with ADL's Yes Is patient alert and oriented? Yes Caregiver for Another No Barriers to Discharge No Discharge Plan Home Transportation Arrangement patient's parent(s) can pick her up upon discharge Referrals Initiated None needed Whiteboard Updated in Patient Room with Yes name and ext. # of Neon Sign Erector Review Status In Process Next Review Type Continued Stay Review
[2021-10-16 16:09] LABS: Monotest Negative (Negative)
[2021-10-17] VITALS: BP 105/70; PULSE 60; RESP 18; TEMP 36.7; O2SAT 98
[2021-10-17] MEDS: SODIUM CHLORIDE 0.9% 1,000 ML 100 ML IV (01:54)
[2021-10-17 03:08] LABS: HBsAg Screen Negative (Negative); Hepatitis A Antibody IgM Negative (Negative); Hepatitis B Core Antibody IgM Negative (Negative); Hepatitis C Antibody <0.1 s/co ratio (0.0-0.9)
[2021-10-17 06:00] VITALS: BP 109/56; PULSE 64; RESP 18; TEMP 36.7; O2SAT 100
[2021-10-17 07:00] VITALS: O2SAT 99
[2021-10-17 07:23] LABS: Add Manual Diff / Slide Review NO; Basophils Absolute Auto 0 /uL (0-100); Basophils Percent Auto 0.7 % (0-2); Eosinophils Absolute Auto 300 /uL (0-450); Eosinophils Percent Auto 6.6 % (2-4); Hematocrit 33.3 % (36-46); Hemoglobin 11.2 g/dL (12.0-16.0); Lymphocytes Absolute Auto 1800 /uL (1100-4500); Lymphocytes Percent Auto 45.4 % (25-40); Mean Corpuscular HGB Conc 33.6 % (30-36); Mean Corpuscular Hemoglobin 28.6 PG (26-34); Mean Corpuscular Volume 85.1 fL (80-100); Monocytes Absolute Auto 300 /uL (0-900); Monocytes Percent Auto 8.6 % (3-14); Neutrophils Absolute Auto 1500 /uL (1500-7000); Neutrophils Percent Auto 38.7 % (50-75); Platelet Count 137 X10^3/uL (150-400); Red Blood Cell Count 3.91 X10^6/uL (4.0-5.2); Red Cell Distribution Width 13.9 % (11.6-14.8); White Blood Cell Count 3.9 X10^3/uL (4.5-11.0)
[2021-10-17 07:32] LABS: Alanine Aminotransferase 211 IU/L (<35); Albumin 3.5 g/dL (3.5-5.0); Albumin Globulin Ratio 1.3 (1.0-2.8); Alkaline Phosphatase 72 U/L (38-126); Aspartate Aminotransferase 109 IU/L (14-36); BUN Creatinine Ratio 10.4 (6-22); Bilirubin Total 0.7 mg/dL (0.2-1.3); Blood Urea Nitrogen 8 mg/dL (7-17); Calcium 8.2 mg/dL (8.4-10.2); Carbon Dioxide 24 mmol/L (22-32); Chloride 110 mmol/L (98-107); Estimated Glomerular Filt Rate > 60.0 mL/min (>60); Globulin 2.6 g/dL (1.7-4.1); Glucose 76 mg/dL (70-100); HEMOLYSIS < 15 (0-50); Potassium 4.2 mmol/L (3.4-5.1); Sodium 138 mmol/L (137-145); Total Protein 6.1 g/dL (6.3-8.2)
[2021-10-17 07:55] VITALS: O2SAT 100
[2021-10-17 08:13] VITALS: BP 113/73; PULSE 70
[2021-10-17] MEDS: METOPROLOL ER 25 MG TABLET PO (08:13)
[2021-10-17] MEDS: ENOXAPARIN 40 MG/0.4 ML SYRINGE SUBCUT (08:15)
[2021-10-17] MEDS: ONDANSETRON 4 MG/2 ML INJ IV (08:22)
[2021-10-17] MEDS: HYDROCODONE/ACET 5/325 TABLET 1 TAB PO (10:07)
--- NOTE | 2021-10-17 13:05 | P.PN_ITS ---
Subjective Subjective Interval history: Patient reports improved abd pain and n/v. However, she's understandably concerned about biliary colic recurrence. We discussed that general surgery does not recommend cholecystectomy. We discussed dietary strategies to keep biliary colic at bay, i.e. eating slowly, thoroughly, and avoiding fatty foods. I also advised her to follow-up with her PCP for general surgery or GI outpatient referral. She understands and is agreeable. Exam Vital Signs (past 8 hours): - 10/17/21 06:00 10/17/21 07:00 10/17/21 07:55 Temperature 98.1 F Pulse Rate 64 Respiratory Rate 18 Blood Pressure 109/56 L Pulse Oximetry 100 99 100 10/17/21 08:13 Temperature Pulse Rate 70 Respiratory Rate Blood Pressure 113/73 Pulse Oximetry Oxygen Delivery Method Room Air Oxygen Flow Rate 0 Const Other: Sitting up in chair upon my entering the room, in no apparent, acute distress Eyes Other: No scleral icterus appreciated. Resp Other: Lungs clear to auscultation bilaterally. Cardio Other: RRR, S1 and S2 heart sounds normal, with no extra heart sounds or murmurs appreciated. No peripheral edema noted. GI Other: Soft, non-distended, slightly tender to palpation over RUQ. Bowel sounds present. Skin Other: No grossly abnormal skin lesions noted. Extrem Other: Palpable and equally steady radial pulses. Objective Labs Result Diagrams: 10/17/21 07:03 10/17/21 07:03 Labs: Laboratory Results - last 24 hr 10/16/21 10/16/21 10/17/21 00:45 06:04 07:03 WBC RBC Hgb Hct MCV MCH MCHC RDW Plt Count Neut % (Auto) Lymph % (Auto) [place] % (Auto) Eos % (Auto) Baso % (Auto) Neut # (Auto) Lymph # (Auto) [place] # (Auto) Eos # (Auto) Baso # (Auto) Sodium 138 Potassium 4.2 Chloride 110 H Carbon Dioxide 24 BUN 8 Creatinine 0.77 Estimated GFR > 60.0 BUN/Creatinine Ratio 10.4 Glucose 76 Calcium 8.2 L Total Bilirubin 0.7 AST 109 H ALT 211 H Alkaline Phosphatase 72 D Total Protein 6.1 L Albumin 3.5 Globulin 2.6 Albumin/Globulin Ratio 1.3 Hepatitis A IgM Ab Negative Hep Bs Antigen Negative Hep B Core IgM Ab Negative Hepatitis C Antibody <0.1 Hep C Ab Signal/Cutoff Comment Monoscreen Negative 10/17/21 07:03 WBC 3.9 L RBC 3.91 L Hgb 11.2 L Hct 33.3 L MCV 85.1 MCH 28.6 MCHC 33.6 RDW 13.9 Plt Count 137 L Neut % (Auto) 38.7 L Lymph % (Auto) 45.4 H [place] % (Auto) 8.6 Eos % (Auto) 6.6 H Baso % (Auto) 0.7 Neut # (Auto) 1500 Lymph # (Auto) 1800 [place] # (Auto) 300 Eos # (Auto) 300 Baso # (Auto) 0 Sodium Potassium Chloride Carbon Dioxide BUN Creatinine Estimated GFR BUN/Creatinine Ratio Glucose Calcium Total Bilirubin AST ALT Alkaline Phosphatase Total Protein Albumin Globulin Albumin/Globulin Ratio Hepatitis A IgM Ab Hep Bs Antigen Hep B Core IgM Ab Hepatitis C Antibody Hep C Ab Signal/Cutoff [facility] Medical History Closed head injury Concussion syndrome Dizziness Gallbladder sludge Lower back pain Urinary tract infection Social History household members: family Smoking Status: Never smoker alcohol intake: never Assessment & Plan Assessment & Plan narrative: Mariia Childress is placed into observation for further evaluation and management of abdominal pain suspected to be biliary colic. 1. Biliary colic, acute, present on admission * US gallbladder showed sludge/gravel stone, and no cholecystitis * HIDA scan reveals evidence of likely chronic cholecystitis * Appreciate general surgery recommendations that patient not under cholecystectomy this admission * We discussed dietary strategies to try to prevent biliary colic, and advised patient to follow-up with PCP outpatient for likely GI or general surgery clinic referral 2. Essential hypertension * Continue home dose of metoprolol succinate 25 mg p.o. daily Code status: Full code I have utilized all available immediate resources to obtain, update, or review of the patient's current medications Time Spent With Patient Critical Care time: I spent a total of [] minutes of critical care time on this patient's care today; this time is exclusive of procedural time. Quality VTE Deep Vein Thrombosis/Pulmonary Embolism Present on Admission: No MIPS - Admit I confirm the patient?s Advance Care Plan is present, Code status is documented, Surrogate decision maker is in patient?s record [If Yes, STOP here]: Yes
--- NOTE | 2021-10-17 13:13 | P.DS_ITS ---
History of Present Illness History of Present Illness Chief complaint: THOWING UP RIGHT SIDE PAIN Narrative: Mariia Childress is a 31-year-old female who presented to the emergency department with right upper quadrant pain, nausea and vomiting.? She noticed initially that the pain started under the ribs.? She has not been eating for the past 4-5 days therefore not urinating much and has chronic constipation.? She has been able to keep down water and Gatorade.? She states that she had chills but no fever.? She currently takes metoprolol, though I am not sure aside from an elevated heart rate as to why she is taking it. In the emergency department ordered an ultrasound of her abdomen and found gallstones and gallbladder sludge with no signs of acute cholecystitis.? ED consulted with General surgery and they requested that we admit the patient and order a HIDA scan for her in the morning.? Her vital signs are stable and normal, CBC is unremarkable, she does have a mildly elevated creatinine of 1.07 which might be caused from dehydration, her T bili is elevated at 1.5 AST 707 ALT 566 alk-phos 140 with protein of 8.8.? She had a mild amount of urine bacteria and a culture was not indicated.? COVID-19 PCR is negative, acute hepatitis panel is pending. Discharge Providers Provider Date of admission: 10/16/21 00:42 Discharge Date: 10/17/21 Primary care physician: Lexii Nunez PA-C Consults: 10/16/21 00:39 Consult to General Surgery Stat Comment: Consulting Provider: Delmy Bassett Reason for consultation: gallbladder dysfunction Has provider been notified: Yes 10/16/21 02:40 Consult to Physician Routine Comment: Consulting Provider: Delmy Bassett Reason for consultation: Gall stones, sludge Has provider been notified: Yes Discharge provider: Ruel Cordova MD Summary Hospital Course Discharge Diagnosis: Mariia Childress is placed into observation for further evaluation and management of abdominal pain suspected to be biliary colic. 1. Biliary colic, acute, present on admission ? US gallbladder showed sludge/gravel stone, and no cholecystitis ? HIDA scan reveals evidence of likely chronic cholecystitis ? Appreciate general surgery recommendations that patient not under cholecystectomy this admission ? We discussed dietary strategies to try to prevent biliary colic, and advised patient to follow-up with PCP outpatient for likely GI or general surgery clinic referral 2. Essential hypertension ? Continue home dose of metoprolol succinate 25 mg p.o. daily Code status: Full code I have utilized all available immediate resources to obtain, update, or review of the patient's current medications Exam Vital Signs (past 8 hours): - 10/17/21 06:00 10/17/21 07:00 10/17/21 07:55 Temperature 98.1 F Pulse Rate 64 Respiratory Rate 18 Blood Pressure 109/56 L Pulse Oximetry 100 99 100 10/17/21 08:13 Temperature Pulse Rate 70 Respiratory Rate Blood Pressure 113/73 Pulse Oximetry Oxygen Delivery Method Room Air Oxygen Flow Rate 0 Objective Labs Result Diagrams: 10/17/21 07:03 10/17/21 07:03 Labs: Laboratory Results - last 24 hr 10/16/21 10/16/21 10/17/21 00:45 06:04 07:03 WBC RBC Hgb Hct MCV MCH MCHC RDW Plt Count Neut % (Auto) Lymph % (Auto) [place] % (Auto) Eos % (Auto) Baso % (Auto) Neut # (Auto) Lymph # (Auto) [place] # (Auto) Eos # (Auto) Baso # (Auto) Sodium 138 Potassium 4.2 Chloride 110 H Carbon Dioxide 24 BUN 8 Creatinine 0.77 Estimated GFR > 60.0 BUN/Creatinine Ratio 10.4 Glucose 76 Calcium 8.2 L Total Bilirubin 0.7 AST 109 H ALT 211 H Alkaline Phosphatase 72 D Total Protein 6.1 L Albumin 3.5 Globulin 2.6 Albumin/Globulin Ratio 1.3 Hepatitis A IgM Ab Negative Hep Bs Antigen Negative Hep B Core IgM Ab Negative Hepatitis C Antibody <0.1 Hep C Ab Signal/Cutoff Comment Monoscreen Negative 10/17/21 07:03 WBC 3.9 L RBC 3.91 L Hgb 11.2 L Hct 33.3 L MCV 85.1 MCH 28.6 MCHC 33.6 RDW 13.9 Plt Count 137 L Neut % (Auto) 38.7 L Lymph % (Auto) 45.4 H [place] % (Auto) 8.6 Eos % (Auto) 6.6 H Baso % (Auto) 0.7 Neut # (Auto) 1500 Lymph # (Auto) 1800 [place] # (Auto) 300 Eos # (Auto) 300 Baso # (Auto) 0 Sodium Potassium Chloride Carbon Dioxide BUN Creatinine Estimated GFR BUN/Creatinine Ratio Glucose Calcium Total Bilirubin AST ALT Alkaline Phosphatase Total Protein Albumin Globulin Albumin/Globulin Ratio Hepatitis A IgM Ab Hep Bs Antigen Hep B Core IgM Ab Hepatitis C Antibody Hep C Ab Signal/Cutoff Monoscreen PFSH Medical History Closed head injury Concussion syndrome Dizziness Gallbladder sludge Lower back pain Urinary tract infection Social History household members: family Smoking Status: Never smoker alcohol intake: never Discharge Assessment & Plan Assessment and Plan Assessment: Mariia Childress is placed into observation for further evaluation and management of abdominal pain suspected to be biliary colic. 1. Biliary colic, acute, present on admission ? US gallbladder showed sludge/gravel stone, and no cholecystitis ? HIDA scan reveals evidence of likely chronic cholecystitis ? Appreciate general surgery recommendations that patient not under cholecystectomy this admission ? We discussed dietary strategies to try to prevent biliary colic, and advised patient to follow-up with PCP outpatient for likely GI or general surgery clinic referral 2. Essential hypertension ? Continue home dose of metoprolol succinate 25 mg p.o. daily Code status: Full code I have utilized all available immediate resources to obtain, update, or review of the patient's current medications Discharge Plan Discharge Plan Patient Disposition: Home Discharge orders & Medications Prescriptions: Continued loratadine [Claritin] 10 mg Tablet 10 mg PO DAILY 0RF metoprolol succinate 25 mg tablet extended release 24 hr 25 mg PO DAILY 0RF Label Comments: TAKE 1 TABLET BY MOUTH ONCE DAILY epinephrine 0.3 mg/0.3 mL auto-injector 0.3 mg IM PRN PRN (Reason: Allergic Reaction) 0RF Rx Instructions: Patient states she hasn't used for about 4 years (used for fish allergies) Changed ondansetron 4 mg tablet,disintegrating 8 mg PO Q8H PRN (Reason: nausea and vomiting) 10 Days Qty: 60 0RF Follow up/Referrals: Lexii Nunez PA-C [Primary Care Provider] - Discharge Data Primary Care Provider: Lexii Nunez Attending Provider: Tabitha Vidal VTE Deep Vein Thrombosis/Pulmonary Embolism Present on Admission: No
--- NOTE | 2021-10-17 14:05 | PC.NURSE ---
Pt discharged at 1400, escorted off floor in wheelchair, accompanied by hospital staff. IV removed, discharge teaching completed. Importance of follow up appointments reviewed, pt states she has appointment with primary care physician this week and will ask for referral to GI doc at that time. Patient left the floor with all belongings in possession.
[2021-10-18 09:19] LABS: HIV 1 & 2 Ab/Ag 4th Gen Combo NEGATIVE (NEGATIVE)
== END 2021-10-17 14:07 | disposition home or self-care (01) ==
LOC: ED 10-16 00:41 → AC 10-16 07:45
PROVIDERS: Emergency Medicine; Student in an Organized Health Care Education/Training Program; Admitting Provider Nurse Practitioner Family; Emergency Provider Emergency Medicine; PCP Physician Assistant Medical; Referring Provider Emergency Medicine; Visit Provider Nurse Practitioner Family
DX: K80.50 Calculus of bile duct without cholangitis or cholecystitis without obstruction (principal); I10 Essential (primary) hypertension; Z20.822 Contact with and (suspected) exposure to COVID-19
CPT/HCPCS: 36415; 76705; 78227; 80048; 80053; 80074; 81003; 81015; 81025; 83690; 84703; 85025; 86318; 87389; 87635; 94760; 96361; 96372; 96374; 96375; 96376; 99225; 99284; A9537; C9803; G0378; J1650; J1885; J2405; J2805

== ENCOUNTER → 2021-11-07 09:17 | Outpatient (CLI) | payer OTHER, MEDICAID, SELFPAY ==
[2021-10-16 00:51] VITALS: BMI 26.2
[2021-11-07 11:23] LABS: COVID19 -Nasal RAPID Negative (Negative)
== END ==
PROVIDERS: PCP Physician Assistant Medical; Visit Provider Family Medicine Sleep Medicine
DX: Z20.822 Contact with and (suspected) exposure to COVID-19 (principal)
CPT/HCPCS: 87635; C9803

== ENCOUNTER 2021-11-08 13:20 | Day surgery (SDC) | payer OTHER, MEDICAID, SELFPAY ==
[2021-10-16 00:51] VITALS: BMI 26.2
[2021-11-05 14:36] VITALS: BMI 28.2
[2021-11-08 13:33] VITALS: BP 126/86; PULSE 71; RESP 16; TEMP 36.3; O2SAT 97; BMI 26.3
[2021-11-08] MEDS: LACTATED RINGERS 1,000 ML 42 ML IV (13:55)
--- NOTE | 2021-11-08 15:19 | PM.PREOP ---
Pre-operative Note Interval Note History & Physical reviewed/Exam performed by Physician: Yes Changes to H&P: No
--- NOTE | 2021-11-08 15:19 | PM.HP.1 ---
History of Present Illness History of Present Illness Chief complaint: Chronic tonsillitis Narrative: 31-year-old female last seen in clinic 09/18/2021 with history of recurrent tonsil stones and chronic tonsillitis, incompletely managed with medical therapy, presents for tonsillectomy and possible adenoidectomy. No interval health changes, no recent cough, cold, or fever. Patient History Medical History Chronic tonsillitis Closed head injury Concussion syndrome Dizziness Gallbladder sludge Lower back pain Tachycardia Urinary tract infection Family & Social History Social History: household members family Tobacco & Substance use: Smoking Status Never smoker alcohol intake never Substance Use Type does not use Meds Home Medications and Allergies Home Medications Medication Instructions Recorded Confirmed Type epinephrine 0.3 mg/0.3 mL 0.3 mg IM PRN PRN 10/05/19 11/05/21 History injection, auto-injector loratadine 10 mg tablet (Claritin) 10 mg PO DAILY 10/16/21 11/08/21 History metoprolol succinate 25 mg 25 mg PO DAILY 10/16/21 11/08/21 History tablet,extended release 24 hr ondansetron 4 mg disintegrating 8 mg PO Q8H PRN 10 Days #60 tab 10/17/21 11/05/21 Rx tablet Allergies Allergy/AdvReac Type Severity Reaction Status Date / Time ciprofloxacin [From CIPRO] Allergy Intermediate Verified 10/16/21 09:52 Sulfa (Sulfonamide Allergy Intermediate Verified 10/16/21 09:52 Antibiotics) [SULFA (SULFONAMIDE ANTIBIOTICS)] sulfamethoxazole Allergy Intermediate Difficulty Verified 10/05/21 16:07 [From Bactrim] Breathing trimethoprim [From Bactrim] Allergy Intermediate Difficulty Verified 10/05/21 16:07 Breathing escitalopram [From Lexapro] Allergy Mild Rash Verified 10/05/21 16:07 Review of Systems Review of Systems Narrative: Negative except as listed in HPI Exam Vital Signs (past 8 hours): - 11/08/21 13:33 Temperature 97.4 F L Pulse Rate 71 Respiratory Rate 16 Blood Pressure 126/86 Pulse Oximetry 97 Oxygen Delivery Method Room Air Narrative Exam Narrative: Well-developed well-nourished female in no acute distress tonsils 2 to 3+, cryptic, heart regular rate and rhythm without murmur, lungs clear to auscultation bilaterally Assessment & Plan Assessment & Plan narrative: Assessment: Chronic tonsillitis, throat pain, tonsil stones Plan: Following discussion of the material risks benefits complications and alternatives, the patient elected to proceed with tonsillectomy and possible adenoidectomy as outpatient. Time Spent With Patient Critical Care time: I spent a total of [] minutes of critical care time on this patient's care today; this time is exclusive of procedural time.
--- NOTE | 2021-11-08 15:22 | PM.OP.1 ---
Operative Date/Time/Diagnoses Date of procedure: 11/08/21 Time of procedure: 16:06 Pre-op diagnosis: Chronic tonsillitis, tonsil stones, throat pain Post-op diagnosis: same Procedure & Clinicians Procedure: Adenotonsillectomy Same procedure as scheduled: Yes Indications: 31-year-old female with above diagnoses incompletely managed with medical therapy presents for the above procedure. Following discussion of the material risks benefits complications and alternatives, the patient elected to proceed. Surgeon: Farhan Chance Click Yes if Unassisted: Yes Anesthesia Type: General and Local Operative Notes Findings: Intact palate, single uvula, 2+ tonsils, cryptic with stones, 2+ adenoids Estimated Blood Loss (mL): 10 Procedure in detail: Following identification and confirmation of consent the patient was brought to the operating room suite and placed in the supine position. General endotracheal anesthesia was administered. A head wrap, shoulder roll, and mouth gag were placed and a red rubber catheter was inserted through the nostril and out the mouth to retract the soft palate. Partially obstructive adenoid tissue was ablated with suction electrocautery on a setting of 40, without injury to the eustachian tube orifices or choana. The left tonsil was retracted medially and suction electrocautery on a setting of 30 was used to dissect the tonsil in a subcapsular plane, followed by hemostasis with the same. This process was repeated on the right side with identical findings. The tonsillar fossae were superficially infiltrated bilaterally with a 1:1 mixture of 1% lidocaine 1 100,000 epinephrine and 0.25% Marcaine 1 to 140060 epinephrine. Mouth gag and rubber catheter were removed and the patient was extubated in the operating room and taken to the recovery room in stable condition without known complication. Complications: none Post-operative Condition: stable Disposition: same day surgery Plan for aftercare: Push fluids, alternate Tylenol and Advil every 3 hours for baseline pain control, oxycodone for breakthrough pain. Soft diet 2 full weeks, no heavy lifting or straining 2 weeks.
[2021-11-08] MEDS: LIDOCAINE 1% W/EPI 20 ML INJ (15:48)
[2021-11-08] MEDS: BUPIVACAINE 0.25% (PF) VIAL 30 ML INJ (15:49)
--- NOTE | 2021-11-08 15:50 | SUR.OPER ---
No prep needed for the procedure. Warm blanket used intraop, no patsy hugger used per the anesthesiologist.
[2021-11-08 16:13] VITALS: BP 141/100; PULSE 78; RESP 14; TEMP 36.5; O2SAT 99
[2021-11-08 16:15] VITALS: BP 101/71; PULSE 73; RESP 18; O2SAT 100
[2021-11-08 16:25] VITALS: BP 110/81; PULSE 60; RESP 16; O2SAT 100
[2021-11-08] MEDS: ACETAMINOPHEN 325 MG TABLET 650 MG PO (16:33)
[2021-11-08 16:40] VITALS: BP 128/77; PULSE 58; RESP 16; TEMP 36.8; O2SAT 100
[2021-11-08 16:45] VITALS: BP 114/70; PULSE 70; RESP 18; O2SAT 100
== END 2021-11-08 17:10 | disposition home or self-care (01) ==
PROVIDERS: PCP Physician Assistant Medical; Referring Provider Otolaryngology; Visit Provider Otolaryngology
PROC: (CPT 42821; principal; 2021-11-08 14:30)
DX: J35.01 Chronic tonsillitis (principal); J35.8 Other chronic diseases of tonsils and adenoids
CPT/HCPCS: 42821; 81025

== ENCOUNTER 2024-01-05 17:29 | Emergency (ER) | payer OTHER, SELFPAY ==
[2021-10-16 00:51] VITALS: BMI 26.2
[2024-01-05 17:34] VITALS: BP 155/90; PULSE 98; RESP 16; TEMP 36.7; O2SAT 98; BMI 28.3
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
== END 2024-01-05 19:11 | disposition home or self-care (01) ==
PROVIDERS: Emergency Provider Emergency Medicine; PCP Physician Assistant Medical
DX: S06.0X0A Concussion without loss of consciousness, initial encounter (principal); V89.2XXA Person injured in unspecified motor-vehicle accident, traffic, initial encounter
CPT/HCPCS: 99281

== ENCOUNTER → 2024-05-13 16:00 | Outpatient (CLI) | payer OTHER, SELFPAY ==
[2021-10-16 00:51] VITALS: BMI 26.2
--- NOTE | 2024-05-13 16:01 | DI.RAD.S_ITS ---
PROCEDURE: XR FOOT RT MIN 3V INDICATIONS: Right foot pain TECHNIQUE: 3 views of the foot were acquired. COMPARISON: None. FINDINGS: Bones: There are no osseous abnormalities Joints: The joint spaces are normal in width and alignment without arthritic change. Soft tissues: No soft tissue abnormality. IMPRESSION: Normal. Dictated by: Louie Wagner M.D. on 05/14/2024 at 7:58 Approved by: Louie Wagner M.D. on 05/14/2024 at 7:59
== END ==
PROVIDERS: PCP Physician Assistant Medical; Referring Provider Nurse Practitioner Family; Visit Provider Nurse Practitioner Family
DX: M79.671 Pain in right foot (principal)
CPT/HCPCS: 73630

== ENCOUNTER → 2024-10-21 13:02 | Outpatient (CLI) | payer OTHER, SELFPAY ==
[2021-10-16 00:51] VITALS: BMI 26.2
--- NOTE | 2024-10-21 13:03 | DI.RAD.S_ITS ---
PROCEDURE: XR HIP W PEL IF DONE RT 2V INDICATIONS: R hip pain worsening 10D fall onto ice red ROM TECHNIQUE: 2 views of the hip were acquired. COMPARISON: None. FINDINGS: Bones: No fractures or dislocations. No suspicious bony lesions. The visualized pelvic ring appears intact. Soft tissues: No suspicious soft tissue calcifications or masses. IMPRESSION: No acute bony abnormality. Dictated by: Srinivas Chávez M.D. on 10/21/2024 at 14:47 Approved by: Srinivas Chávez M.D. on 10/21/2024 at 14:47
--- NOTE | 2024-10-21 13:03 | DI.RAD.S_ITS ---
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 COMPARISON: None. FINDINGS: Bones: No fractures or dislocations. No suspicious bony lesions. Visualized ribs appear intact. Soft tissues: No suspicious soft tissue calcifications. IMPRESSION: No acute bony abnormality. Dictated by: Srinivas Chávez M.D. on 10/21/2024 at 14:46 Approved by: Srinivas Chávez M.D. on 10/21/2024 at 14:47
== END ==
PROVIDERS: PCP Physician Assistant Medical; Referring Provider Student in an Organized Health Care Education/Training Program; Visit Provider Student in an Organized Health Care Education/Training Program
DX: S46.911A Strain of unspecified muscle, fascia and tendon at shoulder and upper arm level, right arm, initial encounter (principal); M25.559 Pain in unspecified hip; W19.XXXA Unspecified fall, initial encounter
CPT/HCPCS: 73030; 73502